=== PATIENT | female | born 1955 | race African-American/Black ===

== ENCOUNTER → 2018-12-29 | Outpatient (CLI) | payer OTHER ==
[2018-12-29 15:52] LABS: CALCIUM 8.8 mg/dL (8.5-10.1); CREATININE 1.8 mg/dL (0.6-1.0); GFR 34.3; MAGNESIUM 1.1 mg/dL (1.8-2.4); POTASSIUM 3.7 mmol/L (3.5-5.1)
== END | disposition home or self-care (01) ==
LOC: LAB 15:10
PROVIDERS: ATTEND Internal Medicine Interventional Cardiology
DX: I25.10 Atherosclerotic heart disease of native coronary artery without angina pectoris (principal); I50.30 Unspecified diastolic (congestive) heart failure
CPT/HCPCS: 36415; 80048; 83735

== ENCOUNTER → 2019-04-11 | Outpatient (CLI) | payer OTHER | END | disposition home or self-care (01) | LOC: LAB 10:43 | PROVIDERS: ATTEND Internal Medicine Interventional Cardiology | DX: I50.30 Unspecified diastolic (congestive) heart failure (principal) | CPT/HCPCS: 36415; 83735 ==

== ENCOUNTER → 2019-05-18 | Outpatient (CLI) | payer OTHER ==
[2019-05-18 11:18] LABS: ALBUMIN 3.3 g/dL (3.4-5.0); ALBUMIN/GLOBULIN RATIO 0.9 (1.0-1.7); CALCIUM 8.4 mg/dL (8.5-10.1); CREATININE 1.4 mg/dL (0.6-1.0); GFR 45.8; POTASSIUM 3.2 mmol/L (3.5-5.1); TOTAL BILIRUBIN 0.3 mg/dL (0.2-1.0)
== END | disposition home or self-care (01) ==
LOC: LAB 10:36
PROVIDERS: ATTEND Internal Medicine Interventional Cardiology
DX: I50.30 Unspecified diastolic (congestive) heart failure (principal); E78.5 Hyperlipidemia, unspecified
CPT/HCPCS: 36415; 80053; 80061

== ENCOUNTER 2019-11-13 15:18 | Inpatient (IN) | payer OTHER ==
[~2019-11-13] VITALS: Ht 180.3 cm; Wt 136.8 kg
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
[2019-11-13] MEDS ORDERED: IV NORMAL SALINE 500ML 500 ML IV ONE (15:45)
[2019-11-13] MEDS ORDERED: DEXTROSE 25% 10 ML DISP.SYRIN. IV ONE (15:55)
[2019-11-13] MEDS ORDERED: DEXTROSE 50% 25 GM / 50ML DISP.SYRIN. IV ONE (16:00)
[2019-11-13 16:16] LABS: BASO % 0 % (0-3); EOS # 0.1 x10^3/uL (0.0-0.7); EOS % 3 % (0-3); HEMATOCRIT 35.8 % (36.0-47.0); HEMOGLOBIN 11.6 g/dL (12.0-15.5); LYMPH # 3.3 x10^3/uL (1.0-4.8); LYMPH % 57 % (24-48); MEAN CORPUSCULAR HEMOGLOBIN 29 pg (25-35); MEAN CORPUSCULAR HGB CONC 32 g/dL (31-37); MEAN CORPUSCULAR VOLUME 89 fL (79-100); MONO # 0.4 x10^3/uL (0.0-1.1); MONO % 7 % (0-9); NEUT # 1.9 x10^3uL (1.8-7.7); NEUT % 33 % (31-73); PLATELET COUNT 242 x10^3/uL (140-400); RED BLOOD COUNT 4.01 x10^6/uL (3.50-5.40); RED CELL DISTRIBUTION WIDTH 15.3 % (11.5-14.5); WHITE BLOOD COUNT 5.7 x10^3/uL (4.0-11.0)
[2019-11-13 16:25] LABS: CALCIUM 9.2 mg/dL (8.5-10.1); CREATININE 2.5 mg/dL (0.6-1.0); GFR 23.4; POTASSIUM 3.5 mmol/L (3.5-5.1)
--- NOTE | 2019-11-13 16:26 | RAD ---
Single view of the chest. 11/13/2019 3:40 PM Indication: Dizziness. Comparison: None available Findings: Patchy opacification in the right lung base suggestive of infiltrate is seen. No pneumothorax or definitive effusion. Heart size is normal. IMPRESSION: Patchy opacity in the right lung base concerning for infiltrate/pneumonia. Radiographic follow-up to resolution recommended. Electronically signed by: Oswaldo Mejía MD (11/13/2019 4:23 PM) [id number]
--- NOTE | 2019-11-13 16:26 | RAD ---
CT scan of the head without contrast 11/13/2019 Clinical History: Altered mental status. No syncope. Technique: Unenhanced, contiguous, 5 mm axial sections were obtained through the head. One or more of the following individualized dose reduction techniques were utilized for this study: 1. Automated exposure control. 2. Adjustment of the mA and/or kV according to patient size. 3. Use of iterative reconstruction technique. Findings: Comparison study is dated 12/19/2017. The patient is post left mastoidectomy. There is generalized parenchymal atrophy. Areas of decreased attenuation are seen within the periventricular and subcortical white matter of both cerebral hemispheres consistent with areas of small vessel ischemic disease. No acute parenchymal abnormality is seen. No extra-axial fluid collection is noted. No skull fracture is seen. Impression: No acute intracranial abnormality is seen. Electronically signed by: Irving Ortega MD (11/13/2019 4:23 PM) [id number]
[2019-11-13 16:31] LABS: ALBUMIN 3.7 g/dL (3.4-5.0); MAGNESIUM 1.6 mg/dL (1.8-2.4); TOTAL BILIRUBIN 0.2 mg/dL (0.2-1.0); TOTAL PROTEIN 7.5 g/dL (6.4-8.2)
[2019-11-13] MEDS ORDERED: cefTRIAXone SODIUM 1 GM VIAL ONE (16:59)
[2019-11-13] MEDS ORDERED: IV NORMAL SALINE 50ML 50 ML ONE (16:59)
[2019-11-13] MEDS ORDERED: CLINDAMYCIN 600MG PREMIX 50 ML IV ONE (17:00)
[2019-11-13] MEDS ORDERED: ONDANSETRON PF 4 MG/2 ML VIAL. IVP PRN (17:00)
--- NOTE | 2019-11-13 18:23 | EKG ---
[address] [address] Test Date: 2019-11-13 Test Time: 15:44:43 Pat Name: KELSEY CHAVEZ Department: Room: Gender: F [employer] Manager: : 1955 Requested By: JACKSON LITTLE Order Number: [id number] Reading MD: Measurements Intervals [place] Rate: 70 P: 58 VA: 180 QRS: 0 QRSD: 64 T: -35 QT: 480 QTc: 522 Interpretive Statements SINUS RHYTHM LEFT ATRIAL ABNORMALITY R-S TRANSITION ZONE IN V LEADS DISPLACED TO THE RIGHT LOW VOLTAGE QRS(T) CONTOUR ABNORMALITY CONSIDER ANTEROSEPTAL MYOCARDIAL DAMAGE ST & T ABNORMALITY, CONSIDER RECENT INFERIOR MYOCARDIAL OR PERICARDIAL DAMAGE PROLONGED QT ABNORMAL ECG RI6.01 No previous ECG available for comparison
[2019-11-13 18:29] VITALS: BP 126/79
[2019-11-13 19:36] VITALS: BP 115/73
[2019-11-13] MEDS ORDERED: ASPI-612 PO (20:47)
[2019-11-13] MEDS ORDERED: COLC0.6T34 PO (20:47)
[2019-11-13] MEDS ORDERED: EZET10TA20 PO (20:47)
[2019-11-13] MEDS ORDERED: FERR324T14 PO (20:47)
[2019-11-13] MEDS ORDERED: GLYB5TAB3 PO (20:47)
[2019-11-13] MEDS ORDERED: TORS20TA2 PO (20:47)
[2019-11-13] MEDS ORDERED: BENZ1LOZ48 MM (20:47)
[2019-11-13] MEDS ORDERED: CRESTOR40 MG PO (20:47)
[2019-11-13] MEDS ORDERED: AMLO10TA8 PO (20:47)
[2019-11-13] MEDS ORDERED: ACET325T21 PO (20:47)
[2019-11-13] MEDS ORDERED: HYDR-2868 PO (20:47)
[2019-11-13] MEDS ORDERED: RANO10002 PO (20:47)
[2019-11-13] MEDS ORDERED: GABA-586 PO (20:47)
[2019-11-13] MEDS ORDERED: INSU200I4 SQ (20:47)
[2019-11-13] MEDS ORDERED: METO10TA81 PO (20:47)
[2019-11-13] MEDS ORDERED: CLOP75TA PO (20:47)
[2019-11-13] MEDS ORDERED: PANT40TA5 PO (20:47)
[2019-11-13] MEDS ORDERED: ESTR1TAB15 PO (20:47)
[2019-11-13] MEDS ORDERED: FEBU80TA3 PO (20:47)
[2019-11-13] MEDS ORDERED: MAGN400T5 PO (20:47)
[2019-11-13] MEDS ORDERED: NITR0.4T22 SL (20:47)
[2019-11-13] MEDS ORDERED: FLUT9.9S NS (20:47)
[2019-11-13] MEDS ORDERED: CLON0.1T PO (20:47)
[2019-11-13] MEDS ORDERED: POTA20TA4 PO ×2 (20:47)
[2019-11-13] MEDS ORDERED: METO2.5T PO (20:47)
[2019-11-13] MEDS ORDERED: LOSA50TA86 PO (20:47)
[2019-11-13] MEDS ORDERED: ALBU2.5V8 IH (20:47)
[2019-11-13] MEDS ORDERED: CLOT15CR3 TP (20:47)
[2019-11-13] MEDS ORDERED: POLY17PO5 PO (20:47)
[2019-11-13] MEDS ORDERED: CARV6.2541 PO (20:47)
[2019-11-13] MEDS ORDERED: CARI350T14 PO (20:47)
[2019-11-13] MEDS ORDERED: LORA10TA3 PO (20:47)
[2019-11-13] MEDS ORDERED: ALBU2.5V5 NEB (20:47)
[2019-11-13] MEDS ORDERED: INSU100I11 SQ (20:47)
[2019-11-13] MEDS: CLOTRIMAZOLE/BETAMETH 1%-0.05% TOPICAL CREAM 15GM TUBE. TP SCH (21:00)
[2019-11-13] MEDS ORDERED: NITROGLYCERIN SUBLINGUAL 0.4 MG BOTTLE OF 25. SL PRN (21:00)
[2019-11-13] MEDS: hydrALAZINE 25 MG TABLET PO SCH (21:00)
[2019-11-13] MEDS ORDERED: METOCLOPRAMIDE 10 MG TABLET PO PRN (21:00)
[2019-11-13] MEDS ORDERED: ALBUTEROL SULFATE 2.5 MG/3 ML NEBU. NEB PRN (21:00)
[2019-11-13] MEDS ORDERED: BENZOCAINE/MENTHOL LOZNGE 18'S BOX. MM PRN (21:15)
[2019-11-13] MEDS ORDERED: MAG HYDROX/AL HYDROX/SIMETH 30 ML ORAL.SUSP PO PRN (21:30)
[2019-11-13] MEDS ORDERED: DEXTROSE 50% 25 GM / 50ML DISP.SYRIN. IV PRN (21:30)
[2019-11-13] MEDS ORDERED: INSULIN GLARGINE SYRINGE. SQ SCH (22:00)
[2019-11-13] MEDS: cloNIDine HCL 0.1 MG TABLET PO SCH (22:35)
[2019-11-13] MEDS: ATORVASTATIN CALCIUM 20 MG TABLET PO SCH (22:35)
[2019-11-13] MEDS: RANOLAZINE 500 MG TAB.ER.12H PO SCH (22:35)
[2019-11-13] MEDS: EZETIMIBE 10 MG TABLET PO SCH (22:36)
[2019-11-13] MEDS: GABAPENTIN 300 MG CAPSULE. PO SCH (22:36)
[2019-11-13] MEDS: DOCUSATE SODIUM 100 MG CAPSULE PO SCH (22:36)
[2019-11-13] MEDS: PANTOPRAZOLE 40 MG TABLET. PO SCH (22:36)
[2019-11-13] MEDS: CARISOPRODOL 350 MG TABLET PO SCH (22:36)
[2019-11-13] MEDS: MAGNESIUM OXIDE 400 MG TABLET PO SCH (22:36)
[2019-11-13] MEDS: POLYETHYLENE GLYCOL 3350 17 GM PACKET. PO SCH (22:42)
[2019-11-13 23:22] VITALS: BP 117/72
[2019-11-14] MEDS: PIPERACILLIN/TAZOBACTAM 2.25 GM in IV NORMAL SALINE 50ML 50 ML IV SCH ×4 (00:03→17:59)
[2019-11-14] MEDS: ACETAMINOPHEN 325 MG TABLET PO PRN ×2 (03:52→20:32)
[2019-11-14 06:08] VITALS: BP 108/69
[2019-11-14 06:16] LABS: BASO % 1 % (0-3); EOS # 0.1 x10^3/uL (0.0-0.7); EOS % 3 % (0-3); HEMATOCRIT 31.9 % (36.0-47.0); HEMOGLOBIN 10.3 g/dL (12.0-15.5); LYMPH # 1.9 x10^3/uL (1.0-4.8); LYMPH % 47 % (24-48); MEAN CORPUSCULAR HEMOGLOBIN 29 pg (25-35); MEAN CORPUSCULAR HGB CONC 32 g/dL (31-37); MEAN CORPUSCULAR VOLUME 88 fL (79-100); MONO # 0.2 x10^3/uL (0.0-1.1); MONO % 6 % (0-9); NEUT # 1.8 x10^3uL (1.8-7.7); NEUT % 44 % (31-73); PLATELET COUNT 208 x10^3/uL (140-400); RED BLOOD COUNT 3.61 x10^6/uL (3.50-5.40); RED CELL DISTRIBUTION WIDTH 15.4 % (11.5-14.5); WHITE BLOOD COUNT 4.1 x10^3/uL (4.0-11.0)
[2019-11-14 06:32] LABS: ALBUMIN/GLOBULIN RATIO 0.9 (1.0-1.7); CALCIUM 8.1 mg/dL (8.5-10.1); GFR 30.3; POTASSIUM 3.7 mmol/L (3.5-5.1); TOTAL BILIRUBIN 0.2 mg/dL (0.2-1.0); TOTAL PROTEIN 6.4 g/dL (6.4-8.2)
[2019-11-14] MEDS: CARVEDILOL 6.25 MG TABLET PO SCH ×2 (08:00→15:30)
[2019-11-14] MEDS: POLYETHYLENE GLYCOL 3350 17 GM PACKET. PO SCH ×2 (08:31→20:30)
[2019-11-14] MEDS: MAGNESIUM OXIDE 400 MG TABLET PO SCH ×2 (08:32→20:32)
[2019-11-14] MEDS: ESTRADIOL 1 MG TABLET PO SCH (08:34)
[2019-11-14] MEDS: RANOLAZINE 500 MG TAB.ER.12H PO SCH ×2 (08:34→20:31)
[2019-11-14] MEDS: ASPIRIN ENTERIC COATED 81 MG TABLET.DR. PO SCH (08:34)
[2019-11-14] MEDS: FLUTICASONE 50MCG/NASAL SPRAY 16GM BOTTLE. NS SCH (08:35)
[2019-11-14] MEDS: DOCUSATE SODIUM 100 MG CAPSULE PO SCH ×2 (08:35→20:32)
[2019-11-14] MEDS: GABAPENTIN 300 MG CAPSULE. PO SCH ×3 (08:35→20:32)
[2019-11-14] MEDS: PANTOPRAZOLE 40 MG TABLET. PO SCH ×2 (08:35→20:32)
[2019-11-14] MEDS: FERROUS SULFATE 325 MG TABLET. PO SCH (08:35)
[2019-11-14] MEDS: CARISOPRODOL 350 MG TABLET PO SCH ×3 (08:36→20:32)
[2019-11-14] MEDS: CETIRIZINE HCL 10 MG TABLET PO SCH (08:36)
[2019-11-14] MEDS: CLOPIDOGREL BISULFATE 75 MG TABLET PO SCH (08:36)
[2019-11-14] MEDS: CLOTRIMAZOLE/BETAMETH 1%-0.05% TOPICAL CREAM 15GM TUBE. TP SCH ×2 (08:37→20:45)
[2019-11-14] MEDS: amLODIPine BESYLATE 10 MG TABLET PO SCH (08:39)
[2019-11-14] MEDS: LOSARTAN 50 MG TABLET. PO SCH (08:39)
[2019-11-14] MEDS: cloNIDine HCL 0.1 MG TABLET PO SCH ×3 (08:39→20:07)
[2019-11-14] MEDS: hydrALAZINE 25 MG TABLET PO SCH ×3 (08:39→20:07)
[2019-11-14] MEDS: INSULIN LISPRO 300 UNITS/3 ML VIAL. SQ SCH ×4 (08:42→17:17)
[2019-11-14 11:23] VITALS: BP 117/71
[2019-11-14] MEDS ORDERED: ALBUTEROL SULFATE 2.5 MG/3 ML NEBU. IH PRN ×2 (14:30)
[2019-11-14 15:38] VITALS: BP 135/58
[2019-11-14 15:40] VITALS: BP_SYST 134; BP_SYST 136; BP_DIAS 70; BP_DIAS 78
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
[2019-11-14] MEDS ORDERED: POTASSIUM CHLORIDE 20 MEQ TABLET.ER. PO SCH (17:00)
--- NOTE | 2019-11-14 18:42 | PN ---
DATE: 11/14/2019 SUBJECTIVE: The patient was admitted yesterday for presyncopal episode, mild hypoglycemia and was found also to have right lower lobe infiltrate and acute kidney injury. She was treated with IV fluid as well as an amp of D50, started on IV antibiotic and we held all her antihypertensive medication and also blood pressure and diuretics, and she did actually very well. PHYSICAL EXAMINATION: GENERAL: When I saw her this afternoon, she looked well and was clearly in no apparent respiratory distress, awake, alert. There is no pallor, jaundice, cyanosis or thyromegaly. No jugular venous distention. No limb edema. VITAL SIGNS: Her heart rate was 69, blood pressure was 117/71, temperature was 97.6, respiratory rate 20, and oxygen saturation was 96% on room air. HEAD, EYES, EARS, NOSE AND THROAT: Showed normocephalic, atraumatic. NECK: Supple. HEART: Showed normal first and second heart sounds. No gallop or murmur. CHEST: Shows central trachea, equal bilateral expansion, air entry, vesicular sounds with crepitation mostly in the right side posteriorly. ABDOMEN: Slightly distended, soft, nontender. NEUROLOGIC: She is awake, alert, responding appropriately. All cranial nerves are intact. She moves extremities without difficulty. Her intake and output were incompletely recorded. LABORATORY DATA: Her lab work this morning showed a white cell count 4100, hemoglobin 10, hematocrit 32, MCV 88 and platelet count of 208,000. Her serum sodium this morning showed serum sodium 136, potassium 3.7, chloride 100, bicarbonate 27, anion gap of 9, BUN 33, creatinine 2, estimated GFR was 30 mL per minute, her glucose was 129, calcium was 8.1. Total bilirubin, AST, ALT, alkaline phosphatase were normal. Total protein was 6.4, albumin 3. Her toxicology showed acetone was negative. ASSESSMENT: In summary, this is a 64-year-old -[place] female patient who was admitted with a near syncopal episode, preceded by lightheadedness, likely due to excessive diuresis on multiple antihypertensive medications that we held. Hypoglycemia, resolved. Her blood glucose has improved and has been up to 288. Acute kidney injury. Her creatinine came down from 2.5-2. Her baseline creatinine is normally about 1.4. Has right lower lobe infiltrate for which she was started on Rocephin and clindamycin. I actually switch her to Zosyn. PLAN: My plan is to restart her insulin. Continue with IV antibiotic for the time being. We will check her orthostatics and repeat her lab works tomorrow and if she remains stable, she can be discharged to continue on oral antibiotic. BEN REESE MD DR: AUTUMN/khadijah JOB#: [id number] / [id number]
[2019-11-14 20:00] VITALS: BP 127/73
[2019-11-14] MEDS: LACTOBACILLUS RHAMNOSUS GG 1 CAPSULE. PO SCH (20:31)
[2019-11-14] MEDS: EZETIMIBE 10 MG TABLET PO SCH (20:31)
[2019-11-14] MEDS: ATORVASTATIN CALCIUM 20 MG TABLET PO SCH (20:32)
[2019-11-14] MEDS: INSULIN GLARGINE SYRINGE. SQ SCH (20:41)
[2019-11-14 23:01] VITALS: BP 120/72
[2019-11-15] MEDS: PIPERACILLIN/TAZOBACTAM 2.25 GM in IV NORMAL SALINE 50ML 50 ML IV SCH ×3 (00:05→12:12)
[2019-11-15 04:58] LABS: BACTERIA,URINE 0 /HPF (0-FEW); BILIRUBIN,URINE NEG (NEG); CLARITY,URINE CLEAR; COLOR,URINE YELLOW; GLUCOSE,URINE NEG (NEG); NITRITE,URINE NEG (NEG); RBC,URINE 0 /HPF (0-2); SQUAMOUS EPITHELIAL CELL,UR MOD /LPF; UROBILINOGEN,URINE 0.2 mg/dL (0.2 mg/dL); WBC,URINE OCC /HPF (0-4)
[2019-11-15 06:12] VITALS: BP 132/76
[2019-11-15 06:16] LABS: CALCIUM 8.6 mg/dL (8.5-10.1); CREATININE 1.4 mg/dL (0.6-1.0); GFR 45.7; HEMATOCRIT 34.9 % (36.0-47.0); HEMOGLOBIN 11.1 g/dL (12.0-15.5); POTASSIUM 4.1 mmol/L (3.5-5.1); RED BLOOD COUNT 3.96 x10^6/uL (3.50-5.40); RED CELL DISTRIBUTION WIDTH 15.4 % (11.5-14.5); WHITE BLOOD COUNT 4.5 x10^3/uL (4.0-11.0)
[2019-11-15] MEDS ORDERED: POTASSIUM CHLORIDE 20 MEQ TABLET.ER. PO SCH (08:00)
[2019-11-15] MEDS: POLYETHYLENE GLYCOL 3350 17 GM PACKET. PO SCH (08:06)
[2019-11-15] MEDS: cloNIDine HCL 0.1 MG TABLET PO SCH (08:06)
[2019-11-15] MEDS: CARISOPRODOL 350 MG TABLET PO SCH (08:07)
[2019-11-15] MEDS: MAGNESIUM OXIDE 400 MG TABLET PO SCH (08:07)
[2019-11-15] MEDS: CETIRIZINE HCL 10 MG TABLET PO SCH (08:08)
[2019-11-15] MEDS: CLOPIDOGREL BISULFATE 75 MG TABLET PO SCH (08:08)
[2019-11-15] MEDS: hydrALAZINE 25 MG TABLET PO SCH (08:09)
[2019-11-15] MEDS: FERROUS SULFATE 325 MG TABLET. PO SCH (08:10)
[2019-11-15] MEDS: ESTRADIOL 1 MG TABLET PO SCH (08:10)
[2019-11-15] MEDS: PANTOPRAZOLE 40 MG TABLET. PO SCH (08:10)
[2019-11-15] MEDS: LACTOBACILLUS RHAMNOSUS GG 1 CAPSULE. PO SCH (08:10)
[2019-11-15] MEDS: RANOLAZINE 500 MG TAB.ER.12H PO SCH (08:10)
[2019-11-15] MEDS: FLUTICASONE 50MCG/NASAL SPRAY 16GM BOTTLE. NS SCH (08:10)
[2019-11-15] MEDS: GABAPENTIN 300 MG CAPSULE. PO SCH (08:11)
[2019-11-15] MEDS: DOCUSATE SODIUM 100 MG CAPSULE PO SCH (08:11)
[2019-11-15] MEDS: CARVEDILOL 6.25 MG TABLET PO SCH (08:11)
[2019-11-15] MEDS: ASPIRIN ENTERIC COATED 81 MG TABLET.DR. PO SCH (08:11)
[2019-11-15] MEDS: amLODIPine BESYLATE 10 MG TABLET PO SCH (08:12)
[2019-11-15] MEDS: LOSARTAN 50 MG TABLET. PO SCH (08:12)
[2019-11-15] MEDS: CLOTRIMAZOLE/BETAMETH 1%-0.05% TOPICAL CREAM 15GM TUBE. TP SCH (08:13)
[2019-11-15] MEDS: INSULIN LISPRO 300 UNITS/3 ML VIAL. SQ SCH ×4 (08:21→12:11)
[2019-11-15] MEDS: INSULIN GLARGINE SYRINGE. SQ SCH (08:23)
[2019-11-15 11:00] VITALS: BP 117/67
[2019-11-15] MEDS ORDERED: GLYB5TAB3 PO (12:50)
[2019-11-15] MEDS ORDERED: TORS20TA2 PO (12:51)
--- NOTE | 2019-11-15 15:08 | DS ---
DATE OF DISCHARGE: 11/15/2019 HOSPITAL COURSE: The patient is a 64-year-old -[place] Island[place] female patient who was admitted through the Emergency Room with presyncopal episode, mild hypoglycemia and was found to have right lower lobe infiltrate and acute kidney injury. We did treat her with IV fluid as well as an amp of 50% dextrose. I also held her oral hypoglycemic agent and her diuretics and she actually did very well. She remained afebrile. Her white cell count was normal. Her blood sugar has improved and her kidney function has also improved. In fact, her creatinine came down from 2.5, her baseline 1.4. I did contact Dr. Wong and the plan was to discontinue her losartan, stop the metolazone and cut down her torsemide to only 60 mg once a day. I also discontinued her glyburide and she was discharged home to continue on oral Levaquin for her pneumonia. PHYSICAL EXAMINATION: GENERAL: When I saw her this afternoon, she looked well and was clearly in no apparent respiratory distress. No pallor, jaundice, cyanosis or thyromegaly. No jugular venous distention. No limb edema. VITAL SIGNS: Her heart rate was 75, blood pressure was 117/67, temperature was 98.2, respiratory rate 20 and oxygen saturation was 98%. HEAD, EYES, EARS, NOSE AND THROAT: Showed normocephalic, atraumatic. NECK: Supple. CARDIAC: Normal first and second heart sounds. No gallop or murmur. CHEST: Clear to auscultation. No crepitation or rhonchi. ABDOMEN: Distended, soft, nontender. NEUROLOGIC: She was awake, alert, responding appropriately. All cranial nerves intact. She moves extremities without difficulty. Her orthostatic blood pressures showed no evidence of postural hypertension. Her intake over the last 24 hours was 1050, no output was recorded. LABORATORY DATA: Showed serum sodium was 136, potassium 3.7, chloride 100, bicarbonate 27, anion gap of 9, BUN 33. Her serum sodium was 139, potassium 4.1, chloride 103, bicarbonate 27, anion gap of 9, BUN 24, creatinine was 1.4, estimated GFR was 45 mL per minute. Her glucose was 195, calcium was 8.6. Her white cell count was 4500, hemoglobin 11, hematocrit 34, MCV 88 and platelet count 228,000. Urinalysis was unremarkable. Toxic screen was negative. DISCHARGE MEDICATIONS: She was discharged home to continue on following medications: Torsemide 60 mg once a day, glyburide 5 mg twice a day, Tylenol 650 mg every 6 hours, albuterol sulfate inhaler 2 puffs every 4 hours, amlodipine besylate 10 mg once a day, aspirin 81 mg once a day, Cepacol Sore Throat lozenges 1 every 2 hours, Soma 350 mg 3 times a day, carvedilol 6.25 mg twice a day, clonidine 0.1 mg 3 times a day, Plavix 75 mg daily, clotrimazole and betamethasone for Lotrisone cream apply topically twice a day, colchicine 0.6 mg daily, estradiol 1 mg p.o. daily, Zetia 10 mg once a day, febuxostat 80 mg once a day, ferrous fumarate 324 mg daily, fluticasone propionate for Flonase 2 sprays to each nostril once a day, gabapentin 300 mg 3 times a day, hydralazine 25 mg 3 times a day. She is on Tresiba 25 units subcutaneously twice a day and insulin lispro 20 units before meals, loratadine 10 mg once a day, magnesium oxide 600 mg twice a day, metoclopramide 10 mg every 6 hours as needed, nitroglycerin 0.4 mg sublingually every 5 minutes x 3, Protonix 40 mg twice a day, polyethylene glycol 17 grams twice a day, potassium chloride 60 mEq p.o. daily, potassium chloride 20 mEq with supper, Ranexa 1000 mg twice a day and Crestor 40 mg at bedtime. I have discontinued her losartan, metolazone and cut down torsemide to 60 mg once a day instead of twice a day. FINAL DISCHARGE DIAGNOSES: 1. Hypoglycemia, resolved. 2. Acute on chronic kidney injury, improved. Her creatinine came down from 2.5 to 1.4, right lower lobe infiltrate, for which she was treated with intravenous Zosyn and was discharged to continue on intravenous Levaquin. Other medical problems include type 2 diabetes mellitus, hypertension, hyperlipidemia, coronary artery disease, status post myocardial infarction with stent deployment x 5. She is known to have chronic kidney disease, generalized osteoarthritis, morbid obesity, obstructive sleep apnea. BEN REESE MD DR: AUTUMN/khadijah JOB#: [id number] / [id number]
== END 2019-11-15 14:42 | disposition home or self-care (01) | DRG 177 ==
LOC: ER 15:18 → 1 SOUTH 16:57
PROVIDERS: ADMIT Internal Medicine; ATTEND Internal Medicine
DX: J69.0 Pneumonitis due to inhalation of food and vomit (principal); N17.0 Acute kidney failure with tubular necrosis; I13.0 Hypertensive heart and chronic kidney disease with heart failure and stage 1 through stage 4 chronic kidney disease, or unspecified chronic kidney disease; Z68.41 Body mass index [BMI] 40.0-44.9, adult; E11.649 Type 2 diabetes mellitus with hypoglycemia without coma; I50.9 Heart failure, unspecified; K21.9 Gastro-esophageal reflux disease without esophagitis; E78.00 Pure hypercholesterolemia, unspecified; E78.5 Hyperlipidemia, unspecified; E11.22 Type 2 diabetes mellitus with diabetic chronic kidney disease; I25.10 Atherosclerotic heart disease of native coronary artery without angina pectoris; M70.22 Olecranon bursitis, left elbow; N18.9 Chronic kidney disease, unspecified; E66.01 Morbid (severe) obesity due to excess calories; G47.33 Obstructive sleep apnea (adult) (pediatric); I44.7 Left bundle-branch block, unspecified; M15.9 Polyosteoarthritis, unspecified; Z95.5 Presence of coronary angioplasty implant and graft; Z90.710 Acquired absence of both cervix and uterus; Z87.891 Personal history of nicotine dependence; Z82.49 Family history of ischemic heart disease and other diseases of the circulatory system; I25.2 Old myocardial infarction; Z79.4 Long term (current) use of insulin; Z88.8 Allergy status to other drugs, medicaments and biological substances; Z88.6 Allergy status to analgesic agent; Z91.040 Latex allergy status
CPT/HCPCS: 36415; 70450; 71045; 80048; 80053; 81001; 82010; 82947; 83735; 84484; 85025; 85027; 87040; 93005; J0696; J1815; J2543; J3490; J7040